=== PATIENT | female | born 1955 | race Caucasian/White ===

== ENCOUNTER 2020-06-15 17:00 | Outpatient (CLI) | payer MEDICAID | END 2020-06-15 17:01 | disposition critical access hospital (66) | LOC: EMS 17:00 | PROVIDERS: ATTEND Surgery | DX: R41.82 Altered mental status, unspecified (principal); R53.1 Weakness | CPT/HCPCS: A0425; A0429; A0999 ==

== ENCOUNTER 2020-06-15 17:34 | Emergency (ER) | payer MEDICAID ==
[2020-06-15 18:08] LABS: BASOPHILS % (AUTO) 0.2 %; EOSINOPHILS % (AUTO) 0.5 %; HGB - HEMOGLOBIN 13.5 g/dL (12.0-16.0); LYMPHOCYTES # (AUTO) 2.2 10^3/uL (1.5-3.5); LYMPHOCYTES % (AUTO) 25.6 %; MEAN CORPUSCULAR HEMOGLOBIN 29.4 pg (27.0-31.0); MEAN CORPUSCULAR HGB CONC 34.8 g/dL (32.0-36.0); MEAN CORPUSCULAR VOLUME 84.5 fL (81.0-99.0); MEAN PLATELET VOLUME 8.6 fL (7.9-10.8); MONOCYTES # (AUTO) 0.8 10^3/uL (0.0-1.0); NEUTROPHILS # (AUTO) 5.5 10^3/uL (1.5-6.6); NEUTROPHILS % (AUTO) 64.5 %; PLT - PLATELET COUNT 240 10^3/uL (130-450); RED BLOOD COUNT 4.59 10^6/uL (4.20-5.40); RED CELL DISTRIBUTION WIDTH 14.3 % (12.0-15.0); WHITE BLOOD COUNT 8.5 x10^3/uL (4.8-10.8)
--- NOTE | 2020-06-15 18:22 | ED Physician Documentation ---
History of Present Illness - Stated complaint Stated Complaint: MHE - Chief complaint Chief Complaint: Neuro - Additonal information Additional information: 65-year-old female was brought into the emergency department because she was noted by Sheriff sims to be wandering around at a gas station and was not making a lot of sense. She was brought here under the presumption of a mental health exam. At the time of presentation to the emergency department patient is aware of where she is at when I asked her why she is here she has a difficult time answering the question. Ultimately she is able to say that she has been having a hard time finding her words.She does seem to clutch her chest but is not clearly able to tell me if she has chest pain. Review of systems is exceedingly difficult to obtain. Patient is quite guarded. She limits our evaluation of her personal belongings or the medications she takes BROWN Report reveals that she has been seen within the last few months multiple times at as well as [facility]. We have limited history with Cecille here at [facility] on her person: asa, hctz Chart reviewed from [facility]. PMH: Hypothyroid, hypertension, COPD, depression meds: Levothyroxine, lisinopril, fluticasoneAlbuterol Review of Systems Unable to obtain: Other (difficult to obtain;) Constitutional: denies: Fever, Chills Cardiac: denies: Chest pain / pressure Respiratory: denies: Dyspnea GI: reports: Abdominal Pain. denies: Abdominal Swelling, Nausea : denies: Dysuria, Frequency Neurologic: reports: Confused, Headache, Other (difficulty with word finding) PD PAST MEDICAL HISTORY - Past Medical History Cardiovascular: Hypertension Psych: Depression - Past Surgical History Past Surgical History: Yes /[employer]: Hysterectomy - Present Medications Home Medications: Ambulatory Orders Medication Instructions Recorded Confirmed Levothyroxine [Synthroid] 03/27/16 Venlafaxine [Effexor] 03/27/16 buPROPion [Wellbutrin Sr] 150 mg PO BID 03/27/16 03/27/16 lisinopriL [Lisinopril] 03/27/16 Phenazopyridine [Pyridium] 200 mg PO TID 5 Days tablet 03/28/16 Sulfamethoxazole/Trimethoprim 1 each PO BID #14 tablet 03/28/16 [Bactrim Ds Tablet] Levothyroxine [Synthroid] 75 mcg PO QDAC #30 tablet 06/15/20 - Allergies Allergies/Adverse Reactions: Allergies Allergy/AdvReac Type Severity Reaction Status Date / Time No Known Drug Allergies Allergy Verified 03/27/16 23:29 - Social History Does the pt smoke?: No Smoking Status: Never smoker Does the pt drink ETOH?: No PD ED PE EXPANDED - General General: Alert, No acute distress, Disheveled, poorly kept - HEENT HEENT: PERRL, EOMI, Moist mucous membranes, Other (poor dentition) - Eyes Eyes: PERRL, Normal accommodation - Neck Neck: Supple w/out meningeal sx, No tenderness, Other (full ROM in all planes) - Cardiac Cardiac: Regular Rate, Normal pulses, Radial strong equal, Femoral strong equal, Pedal strong equal, Cap refill < 2 sec. No: Murmur Present - Respiratory Respiratory: Clear to ausultation amada. No: Distress, Labored - Abdomen Abdomen: Normal Bowel sounds, RLQ (non focal RLQ pain; no guarding or rebound) - Back Back: Normal exam. No: Vertebral tenderness, Soft tissue tenderness - Derm Derm: Normal color (bultiple bruises on arms, abdomen and extremities; large 4X4 cm hematoma left thigh) - Neuro Neuro: Confused, Normal motor, CNII-XII intact. No: Normal Speech (problem with word finding), Weakness, Abnormal sensation - GCS Eye Opening: Spontaneous Motor: Obeys Commands Verbal: Oriented Total: 15 Results - Vitals Vitals: Vital Signs - 24 hr 06/15/20 06/15/20 06/15/20 17:44 18:53 19:35 Temperature 98.2 C H Heart Rate 89 84 96 Respiratory 18 21 16 Rate Blood Pressure 172/91 H 185/96 H 182/127 H O2 Saturation 99 100 100 Oxygen O2 Source Room air - EKG (time done) 1749 Rate: Rate (enter#) (92) Rhythm: NSR [place]: Normal Intervals: Normal [place] QRS: Normal Ischemia: Normal ST segments, Q waves (inferior leads) Compare to prior EKG: Old EKG unavailable Computer interpretation: Agree with computer - Labs Labs: Laboratory Tests 06/15/20 06/15/20 06/15/20 18:00 18:00 18:00 WBC 8.5 RBC 4.59 Hgb 13.5 Hct 38.8 MCV 84.5 MCH 29.4 MCHC 34.8 RDW 14.3 Plt Count 240 MPV 8.6 Neut # (Auto) 5.5 Lymph # (Auto) 2.2 [place] # (Auto) 0.8 Eos # (Auto) 0.0 Baso # (Auto) 0.0 Absolute Nucleated RBC 0.00 Nucleated RBC % 0.0 Sodium 140 Potassium 2.8 L Chloride 103 Carbon Dioxide 29 Anion Gap 8.0 BUN 5 L Creatinine 0.8 Estimated GFR (MDRD) 72 L Glucose 99 Calcium 8.9 Total Bilirubin 1.2 H AST 19 ALT 12 Alkaline Phosphatase 65 Troponin I High Sens Total Protein 6.6 L Albumin 4.5 Globulin 2.1 Albumin/Globulin Ratio 2.1 Lipase 23 TSH < 0.08 L Thyroxine (T4) Urine Color Urine Clarity Urine pH Ur Specific [place] Urine Protein Urine Glucose (UA) Urine Ketones Urine Occult Blood Urine Nitrite Urine Bilirubin Urine Urobilinogen Ur Leukocyte Esterase Ur Microscopic Review Urine Culture Comments Salicylates < 6.0 Urine Opiates Screen Ur Oxycodone Screen Urine Methadone Screen Ur Propoxyphene Screen Acetaminophen < 10 L Ur Barbiturates Screen Ur Tricyclics Screen Ur Phencyclidine Scrn Ur Amphetamine Screen U Methamphetamines Scrn U Benzodiazepines Scrn Urine Cocaine Screen U Cannabinoids Screen Ethyl Alcohol < 5.0 06/15/20 06/15/20 06/15/20 18:00 18:00 18:25 WBC RBC Hgb Hct MCV MCH MCHC RDW Plt Count MPV Neut # (Auto) Lymph # (Auto) [place] # (Auto) Eos # (Auto) Baso # (Auto) Absolute Nucleated RBC Nucleated RBC % Sodium Potassium Chloride Carbon Dioxide Anion Gap BUN Creatinine Estimated GFR (MDRD) Glucose Calcium Total Bilirubin AST ALT Alkaline Phosphatase Troponin I High Sens 4.2 Total Protein Albumin Globulin Albumin/Globulin Ratio Lipase TSH Thyroxine (T4) 12.97 H Urine Color YELLOW Urine Clarity CLEAR Urine pH 5.0 Ur Specific [place] <=1.005 Urine Protein NEGATIVE Urine Glucose (UA) NEGATIVE Urine Ketones NEGATIVE Urine Occult Blood NEGATIVE Urine Nitrite NEGATIVE Urine Bilirubin NEGATIVE Urine Urobilinogen 0.2 (NORMAL) Ur Leukocyte Esterase NEGATIVE Ur Microscopic Review NOT INDICATED Urine Culture Comments NOT INDICATED Salicylates Urine Opiates Screen NEGATIVE Ur Oxycodone Screen NEGATIVE Urine Methadone Screen NEGATIVE Ur Propoxyphene Screen NEGATIVE Acetaminophen Ur Barbiturates Screen NEGATIVE Ur Tricyclics Screen NEGATIVE Ur Phencyclidine Scrn NEGATIVE Ur Amphetamine Screen NEGATIVE U Methamphetamines Scrn NEGATIVE U Benzodiazepines Scrn NEGATIVE Urine Cocaine Screen NEGATIVE U Cannabinoids Screen NEGATIVE Ethyl Alcohol - Rads (name of study) CT head Radiology: Final report received (No acute intracranial process) PD MEDICAL DECISION MAKING - ED course Complexity details: reviewed results, re-evaluated patient, d/w patient, d/w family ED course: 65-year-old female was brought to the emergency department via EMS after deputies noted her wandering around a gas station. She reports that she has some trouble with word finding but she denies that she has any thoughts of self- harm. - During her time in the emergency department she has been quite compliant with our care. She did seem somewhat confused though was able to clearly answer that she Was in the emergency department at [facility] and [place] She has been insistent that she does not need medical care or interventions and has asked multiple times to leave the emergency department - In review of her labs it is noted that she is hypothyroid. I have reviewed some documentation from [facility] and [facility] that does indicate she has a history of hypothyroidism. - We did do a CT of her brain that showed no acute intracranial abnormality. Patient is alert oriented and has no focal cranial neuro deficits. She has been noted to walk in the emergency department with a very steady gait -She is noted to be hypokalemic and was repleted with potassium here in the emergency department - Her EKG is sinus and her high-sensitivity troponin is negative. She has not complained of chest pain or dyspnea. Her urine shows no signs of infection. - We have ultimately contacted the manager general's office who has been in contact with the patient's sister. She is coming to the emergency department 2049: Patient's Sister Sabrina has arrived to the emergency department. She reports to me that the [place] the [place] approximately 3 weeks. In conversation with the patient and her sister it appears that patient is currently at her baseline health and mentation. We discussed this ED visit. Patient is requesting a prescription for levothyroxine due to her history of hypothyroidism. I will write that prescription I have encouraged her to schedule a follow-up appointment with her primary doctor or a new primary doctor [place] in order to help establish care here. Does not appear that there is any emergent medical condition occurring with this patient and she desires to be discharged home. She is not a threat to herself or others Departure - Departure Disposition: 01 Home, Self Care Clinical Impression: Hypokalemia Hypothyroid Qualifiers: Hypothyroidism type: unspecified Qualified Code(s): E03.9 - Hypothyroidism, unspecified Depression Qualifiers: Depression Type: other depression Qualified Code(s): F32.89 - Other specified depressive episodes Condition: Stable Instructions: Hypokalemia Dc, ED Hypothyroidism, ED Depression Prescriptions: Levothyroxine [Synthroid] 75 mcg PO QDAC #30 tablet Comments: Cecille your labs today look generally okay. The CT scan did not show anything worrisome. I think it is important that you schedule an appointment with a primary doctor in the next few weeks to establish care [place]
[2020-06-15 18:25] LABS: ACETAMINOPHEN < 10 ug/mL (10-30); ALBUMIN 4.5 g/dL (3.2-5.5); ALBUMIN/GLOBULIN RATIO 2.1 (1.0-2.2); ALKALINE PHOSPHATASE 65 IU/L (42-121); ALT ALANINE AMINOTRANSFERASE 12 IU/L (10-60); AST ASPARTATE AMINOTRANSFERASE 19 IU/L (10-42); BILIRUBIN,TOTAL 1.2 mg/dL (0.2-1.0); BUN - BLOOD UREA NITROGEN 5 mg/dL (6-20); CALCIUM 8.9 mg/dL (8.5-10.3); CARBON DIOXIDE - CO2 29 mmol/L (21-32); CHLORIDE 103 mmol/L (101-111); CREATININE 0.8 mg/dL (0.4-1.0); GLUCOSE 99 mg/dL (70-100); LIPASE 23 U/L (22-51); SALICYLATE < 6.0 mg/dL; SODIUM 140 mmol/L (135-145); TOTAL PROTEIN 6.6 g/dL (6.7-8.2)
[2020-06-15 18:39] LABS: MUDS CUTOFF CONCENTRATIONS CUTOFF CONC BELOW:
[2020-06-15 18:50] LABS: BILIRUBIN,URINE NEGATIVE (NEGATIVE); GLUCOSE, URINE (UA) NEGATIVE (NEGATIVE); KETONES,URINE (UA) NEGATIVE (NEGATIVE); LEUKOCYTE ESTERASE, URINE NEGATIVE (NEGATIVE); NITRITE,URINE NEGATIVE (NEGATIVE); OCCULT BLOOD,URINE NEGATIVE (NEGATIVE); PROTEIN,URINE NEGATIVE (NEGATIVE); UROBILINOGEN,URINE 0.2 (NORMAL) E.U./dL (NORMAL)
[2020-06-15] MEDS ORDERED: POTASSIUM CHLOR 10 MEQ/100 ML 10 MEQ/100 ML BAG IV STA (18:57)
[2020-06-15] MEDS ORDERED: POTASSIUM CHLORIDE 20 MEQ TABLET PO STA (18:58)
[2020-06-15] MEDS ORDERED: POTASSIUM CHLOR 10 MEQ/100 ML 10 MEQ/100 ML BAG IV SCH (19:00)
--- NOTE | 2020-06-15 19:00 | CT Report ---
PROCEDURE: HEAD WO INDICATIONS: difficulty with word finding; ? confusion TECHNIQUE: Noncontrast 4.5 mm thick angled axial sections acquired from the foramen magnum to the vertex. For r adiation dose reduction, the following was used: automated exposure control, adjustment of mA and/or kV according to patient size. COMPARISON: None. FINDINGS: Image quality: Excellent. CSF spaces: Basal cisterns are patent. No extra-axial fluid collections. Ventricles are normal in size and shape. Brain: No midline shift. No intracranial masses or hemorrhage. Noel-white matter interface is norm al. Skull and face: Calvarium and visualized facial bones are intact, without suspicious lesions. Sinuses: Visualized sinuses and mastoids are clear. IMPRESSION: No acute intracranial process. Reviewed by: Nimesh Rincon MD on 06/15/2020 6:59 PM PDT Approved by: Nimesh Rincon MD on 06/15/2020 6:59 PM PDT Station ID: [id number]
[2020-06-15 19:12] LABS: CLARITY,URINE CLEAR (CLEAR)
[2020-06-15 19:17] LABS: AMPHETAMINE SCREEN,URINE NEGATIVE (NEGATIVE); BENZODIAZEPINES SCREEN, URINE NEGATIVE (NEGATIVE); COCAINE SCREEN URINE NEGATIVE (NEGATIVE); METHADONE SCREEN, URINE NEGATIVE (NEGATIVE); METHAMPHETAMINES SCREEN, URINE NEGATIVE (NEGATIVE); OPIATE SCREEN, URINE NEGATIVE (NEGATIVE); OXYCODONE SCREEN, URINE NEGATIVE (NEGATIVE); PROPOXYPHENE SCREEN, URINE NEGATIVE (NEGATIVE); TRICYCLIC ANTIDEPRESSANT,URINE NEGATIVE (NEGATIVE)
[2020-06-15 21:02] VITALS: BP 165/99
== END 2020-06-15 21:02 | disposition home or self-care (01) ==
LOC: EDUNIT# → ED 17:34
DX: E87.6 Hypokalemia (principal); E03.9 Hypothyroidism, unspecified; F32.89 Other specified depressive episodes
CPT/HCPCS: 36415; 51701; 70450; 80053; 80306; 80307; 80320; 80329; 81001; 81003; 83690; 84436; 84443; 84484; 85025; 87086; 93005; 99283; 99284

== ENCOUNTER 2020-07-25 11:50 | Outpatient (CLI) | payer MEDICAID | END 2020-07-25 11:51 | disposition critical access hospital (66) | LOC: EMS 11:50 | PROVIDERS: ATTEND Surgery | DX: R07.89 Other chest pain (principal); R06.02 Shortness of breath | CPT/HCPCS: A0425; A0427; A0999 ==

== ENCOUNTER 2020-07-25 12:20 | Emergency (ER) | payer MEDICAID ==
--- NOTE | 2020-07-25 12:51 | ED Physician Documentation ---
History of Present Illness - Stated complaint Stated Complaint: CP/SOA - Chief complaint Chief Complaint: Cardiac - History obtained from History obtained from: Patient - History of Present Illness Timing: Today Pain level max: 0 Pain level now: 0 - Additonal information Additional information: Patient states that she was walking down the road today when she tripped and fell. No injury but did feel slightly short of breath. Currently is asymptomatic. She states she has not been feeling well since stopping her Wellbutrin 3 weeks ago. She is not suicidal or homicidal. EMS states that she told them that she had chest pain yesterday. Patient denies this to me. No fevers. No cough. No chills. No vomiting. No abdominal, back, neck, head pain. Review of Systems Ten Systems: 10 systems reviewed and negative Constitutional: denies: Fever, Chills Throat: denies: Sore throat Cardiac: denies: Chest pain / pressure, Palpitations Respiratory: reports: Dyspnea (She felt slightly short of breath earlier). denies: Cough GI: denies: Nausea, Vomiting, Diarrhea : denies: Dysuria Skin: denies: Rash Musculoskeletal: denies: Neck pain, Back pain Neurologic: denies: Headache PD PAST MEDICAL HISTORY - Past Medical History Cardiovascular: Hypertension Psych: Depression - Past Surgical History Past Surgical History: Yes /[employer]: Hysterectomy - Present Medications Home Medications: Ambulatory Orders Medication Instructions Recorded Confirmed Levothyroxine [Synthroid] 03/27/16 Venlafaxine [Effexor] 03/27/16 buPROPion [Wellbutrin Sr] 150 mg PO BID 03/27/16 03/27/16 lisinopriL [Lisinopril] 03/27/16 Phenazopyridine [Pyridium] 200 mg PO TID 5 Days tablet 03/28/16 Sulfamethoxazole/Trimethoprim 1 each PO BID #14 tablet 03/28/16 [Bactrim Ds Tablet] Levothyroxine [Synthroid] 75 mcg PO QDAC #30 tablet 06/15/20 Cephalexin [Keflex] 500 mg PO QID #20 capsule 06/25/20 - Allergies Allergies/Adverse Reactions: Allergies Allergy/AdvReac Type Severity Reaction Status Date / Time No Known Drug Allergies Allergy Verified 07/25/20 12:32 - Social History Does the pt smoke?: No Smoking Status: Never smoker Does the pt drink ETOH?: No PD ED PE NORMAL - Vitals Vital signs reviewed: Yes - General General: Alert and oriented X 3 - HEENT HEENT: Atraumatic, PERRL, Ears normal, Moist mucous membranes - Neck Neck: Supple, no meningeal sign - Cardiac Cardiac: RRR, No murmur, Strong equal pulses - Respiratory Respiratory: No respiratory distress, Clear bilaterally - Abdomen Abdomen: Soft, Non tender, Non distended - Back Back: No spinal TTP - Derm Derm: Warm and dry - Extremities Extremities: No deformity, Normal ROM s pain, No edema, No calf tenderness / cord - Neuro Neuro: Alert and oriented X 3, pin puller 2-12 intact, No motor deficit, No sensory deficit, Normal speech - Psych Psych: Normal mood, Normal affect Results - Vitals Vitals: Vital Signs - 24 hr 07/25/20 07/25/20 07/25/20 12:25 12:51 13:00 Temperature 36.3 C L Heart Rate 86 82 81 Respiratory 16 14 16 Rate Blood Pressure 140/78 H 140/78 H 149/83 H O2 Saturation 99 100 98 07/25/20 14:00 Temperature Heart Rate 78 Respiratory 12 Rate Blood Pressure 148/83 H O2 Saturation 100 Oxygen O2 Source Room air - EKG (time done) 1228 Rate: Rate (enter#) (83) Rhythm: NSR [place]: Normal Intervals: Normal [place] QRS: Normal Ischemia: Normal ST segments, Q waves (II, III, aVF) - Labs Labs: Laboratory Tests 07/25/20 07/25/20 07/25/20 13:01 13:01 13:01 WBC 9.1 RBC 4.40 Hgb 13.5 Hct 37.7 MCV 85.7 MCH 30.7 MCHC 35.8 RDW 14.4 Plt Count 227 MPV 8.9 Neut # (Auto) 6.2 Lymph # (Auto) 2.1 [place] # (Auto) 0.8 Eos # (Auto) 0.0 Baso # (Auto) 0.0 Absolute Nucleated RBC 0.00 Nucleated RBC % 0.0 Sodium 140 Potassium 3.2 L Chloride 100 L Carbon Dioxide 30 Anion Gap 10.0 BUN 10 Creatinine 0.6 Estimated GFR (MDRD) 100 Glucose 93 Calcium 9.1 Total Bilirubin 1.6 H AST 22 ALT 14 Alkaline Phosphatase 62 Troponin I High Sens 6.6 Total Protein 6.2 L Albumin 4.1 Globulin 2.0 L Albumin/Globulin Ratio 2.0 Lipase 21 L Urine Color Urine Clarity Urine pH Ur Specific [place] Urine Protein Urine Glucose (UA) Urine Ketones Urine Occult Blood Urine Nitrite Urine Bilirubin Urine Urobilinogen Ur Leukocyte Esterase Urine RBC Urine WBC Ur Squamous Epith Cells Urine Bacteria Ur Microscopic Review Urine Culture Comments 07/25/20 13:29 WBC RBC Hgb Hct MCV MCH MCHC RDW Plt Count MPV Neut # (Auto) Lymph # (Auto) [place] # (Auto) Eos # (Auto) Baso # (Auto) Absolute Nucleated RBC Nucleated RBC % Sodium Potassium Chloride Carbon Dioxide Anion Gap BUN Creatinine Estimated GFR (MDRD) Glucose Calcium Total Bilirubin AST ALT Alkaline Phosphatase Troponin I High Sens Total Protein Albumin Globulin Albumin/Globulin Ratio Lipase Urine Color YELLOW Urine Clarity CLEAR Urine pH 6.5 Ur Specific [place] <=1.005 Urine Protein NEGATIVE Urine Glucose (UA) NEGATIVE Urine Ketones NEGATIVE Urine Occult Blood NEGATIVE Urine Nitrite NEGATIVE Urine Bilirubin NEGATIVE Urine Urobilinogen 0.2 (NORMAL) Ur Leukocyte Esterase TRACE H Urine RBC None Seen Urine WBC 0-3 Ur Squamous Epith Cells NONE SEEN Urine Bacteria None Seen Ur Microscopic Review INDICATED Urine Culture Comments INDICATED - Rads (name of study) cxr Radiology: Prelim report reviewed, EMP read contemporaneously, See rad report (NAD) PD MEDICAL DECISION MAKING - ED course Complexity details: reviewed results, re-evaluated patient, considered differential, d/w patient, d/w family ED course: Unclear etiology the patient symptoms. Does not appear to be related to acute coronary syndrome, pulmonary embolus, pneumothorax etc. Likely that she is experiencing symptoms related to the abrupt cessation of her Wellbutrin. She does not know her dose or the formulation which she used to take. Therefore will have her contact her doctor today to get a refill. Patient is otherwise well-appearing, nontoxic. No focal neurological deficits. NIH stroke scale of 0. No apparent traumatic injuries. Patient counseled regarding signs and symptoms for which I believe and urgent re-evaluation would be necessary. Patient with good understanding of and agreement to plan and is comfortable going home at this time This document was made in part using voice recognition software. While efforts are made to proofread this document, sound alike and grammatical errors may occur. Departure - Departure Disposition: 01 Home, Self Care Clinical Impression: Atypical chest pain Dyspnea Qualifiers: Dyspnea type: unspecified Qualified Code(s): R06.00 - Dyspnea, unspecified Condition: Good Instructions: ED Chest Pain Atypical Unkn Cause Follow-Up: Your,doctor in 1 week [Other] Comments: You will need to contact your doctor about restarting your medications. They may want to taper you back up to your appropriate dose. Return if you worsen. Discharge Date/Time: 07/25/20 14:31
[2020-07-25 13:22] LABS: ALBUMIN 4.1 g/dL (3.2-5.5); BILIRUBIN,TOTAL 1.6 mg/dL (0.2-1.0); CALCIUM 9.1 mg/dL (8.5-10.3); CREATININE 0.6 mg/dL (0.4-1.0); TOTAL PROTEIN 6.2 g/dL (6.7-8.2)
[2020-07-25 13:24] LABS: BASOPHILS % (AUTO) 0.3 %; EOSINOPHILS % (AUTO) 0.2 %; HGB - HEMOGLOBIN 13.5 g/dL (12.0-16.0); LYMPHOCYTES # (AUTO) 2.1 10^3/uL (1.5-3.5); LYMPHOCYTES % (AUTO) 22.8 %; MEAN CORPUSCULAR HEMOGLOBIN 30.7 pg (27.0-31.0); MEAN CORPUSCULAR HGB CONC 35.8 g/dL (32.0-36.0); MEAN CORPUSCULAR VOLUME 85.7 fL (81.0-99.0); MEAN PLATELET VOLUME 8.9 fL (7.9-10.8); MONOCYTES # (AUTO) 0.8 10^3/uL (0.0-1.0); MONOCYTES % (AUTO) 8.6 %; NEUTROPHILS # (AUTO) 6.2 10^3/uL (1.5-6.6); NEUTROPHILS % (AUTO) 67.7 %; PLT - PLATELET COUNT 227 10^3/uL (130-450); RED CELL DISTRIBUTION WIDTH 14.4 % (12.0-15.0); WHITE BLOOD COUNT 9.1 x10^3/uL (4.8-10.8)
--- NOTE | 2020-07-25 13:35 | XRAY Report ---
PROCEDURE: Chest 1 View X-Ray INDICATIONS: Chest Pain TECHNIQUE: One view of the chest was acquired. COMPARISON: 06/24/2020 FINDINGS: Surgical changes and devices: None. Lungs and pleura: No pleural effusions or pneumothorax. Lungs are clear. Mediastinum: Mediastinal contours appear normal. Heart size is normal. Bones and chest wall: No suspicious bony lesions. Overlying soft tissues appear unremarkable. IMPRESSION: Stable examination of the chest without acute cardiopulmonary abnormalities. No findings identified t o explain patient's chest pain. Reviewed by: Paddy Patiño MD on 07/25/2020 1:34 PM PDT Approved by: Paddy Patiño MD on 07/25/2020 1:34 PM PDT Station ID: [id number]
[2020-07-25 13:57] LABS: BILIRUBIN,URINE NEGATIVE (NEGATIVE); GLUCOSE, URINE (UA) NEGATIVE (NEGATIVE); KETONES,URINE (UA) NEGATIVE (NEGATIVE); LEUKOCYTE ESTERASE, URINE TRACE (NEGATIVE); NITRITE,URINE NEGATIVE (NEGATIVE); OCCULT BLOOD,URINE NEGATIVE (NEGATIVE); PH,URINE 6.5 PH (5.0-7.5); PROTEIN,URINE NEGATIVE (NEGATIVE); UROBILINOGEN,URINE 0.2 (NORMAL) E.U./dL (NORMAL)
[2020-07-25 14:00] LABS: CLARITY,URINE CLEAR (CLEAR)
[2020-07-25 14:01] LABS: BACTERIA,URINE None Seen /HPF (None Seen); RBC,URINE None Seen /HPF (0-5); SQUAMOUS EPITHELIAL CELL,UR NONE SEEN (<= Few)
[2020-07-25 14:25] VITALS: BP 148/83
== END 2020-07-25 14:31 | disposition home or self-care (01) ==
LOC: EDUNIT# → ED 12:20
DX: R06.02 Shortness of breath (principal); R07.89 Other chest pain; I10 Essential (primary) hypertension
CPT/HCPCS: 36415; 71045; 80053; 81001; 81003; 83690; 84484; 85025; 87086; 93005; 99284

== ENCOUNTER 2020-08-01 06:36 | Outpatient (CLI) | payer MEDICAID | END 2020-08-01 06:37 | disposition critical access hospital (66) | LOC: EMS 06:36 | PROVIDERS: ATTEND Surgery | DX: R10.11 Right upper quadrant pain (principal); R41.0 Disorientation, unspecified; R30.0 Dysuria | CPT/HCPCS: A0425; A0427; A0999 ==

== ENCOUNTER 2020-08-01 06:58 | Emergency (ER) | payer MEDICAID ==
--- NOTE | 2020-08-01 07:06 | ED Physician Documentation ---
PD HPI ALTERED MENTAL STATUS - Stated complaint Stated Complaint: CONFUSION - History obtained from History obtained from: Patient - History of Present Illness Timing - onset: Today Timing - duration: Hours (patient says she felt weak and confused and called EMS. They report that she was agitated and anxious on their arrival. They calmed her by talking and brought her here for eval. She says she had some chest pain and dyspnea enroute.) Timing - details: Gradual onset, Waxing and waning Quality / character: Confused (she was not sure what she was doing and got c onfused of which day it was.), Agitated, Other Associated symptoms: No: Fever, Headache, NVD, Focal weakness Contributing factors: No: Diabetic, Recent med change, Recent illness, Intoxicated, Substance abuse Basline status: Ambulatory, Confused (reportedly patient has had some confusion and poor memory. Her sister checks on her often/daily, and there is APS worker on the case (patient still has her own decision capacity; does not have POA). Sister is concerned about patient ability to care for herself.), Home Treatment TEACHING MANAGER: Accucheck Similar symptoms before: No diagnosis (nonspecific chest pain episodes. Episodes of confusion and anxiety.) Recently seen: Emergency Dept Review of Systems Constitutional: denies: Fever, Myalgias Nose: denies: Rhinorrhea / runny nose, Congestion Throat: denies: Sore throat Cardiac: reports: Chest pain / pressure. denies: Palpitations Respiratory: reports: Dyspnea. 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 - Present Medications Home Medications: Ambulatory Orders Medication Instructions Recorded Confirmed Levothyroxine [Synthroid] 03/27/16 Venlafaxine [Effexor] 03/27/16 buPROPion [Wellbutrin Sr] 150 mg PO BID 03/27/16 03/27/16 lisinopriL [Lisinopril] 03/27/16 Phenazopyridine [Pyridium] 200 mg PO TID 5 Days tablet 03/28/16 Sulfamethoxazole/Trimethoprim 1 each PO BID #14 tablet 03/28/16 [Bactrim Ds Tablet] Levothyroxine [Synthroid] 75 mcg PO QDAC #30 tablet 06/15/20 Cephalexin [Keflex] 500 mg PO QID #20 capsule 06/25/20 Venlafaxine [Effexor] 75 mg PO BID #40 tablet 08/01/20 buPROPion [Wellbutrin Sr] 150 mg PO BID #40 tablet 08/01/20 lisinopriL [Lisinopril] 10 mg PO DAILY #20 tablet 08/01/20 - Allergies Allergies/Adverse Reactions: Allergies Allergy/AdvReac Type Severity Reaction Status Date / Time No Known Drug Allergies Allergy Verified 07/25/20 12:32 - Social History Does the pt smoke?: No Smoking Status: Never smoker Does the pt drink ETOH?: No PD ED PE NORMAL - Vitals Vital signs reviewed: Yes - General General: Alert and oriented X 3, Well developed/nourished - HEENT HEENT: Atraumatic, Moist mucous membranes, Pharynx benign - Neck Neck: Supple, no meningeal sign, No adenopathy - Cardiac Cardiac: RRR, No murmur - Respiratory Respiratory: Clear bilaterally - Abdomen Abdomen: Soft, Non tender - Back Back: No CVA TTP - Derm Derm: Normal color, Warm and dry - Neuro Neuro: Alert and oriented X 3, No motor deficit, Normal speech Eye Opening: Spontaneous Motor: Obeys Commands Verbal: Oriented GCS Score: 15 - Psych Psych: No: Normal affect (somewhat anxious) Results - Vitals Vitals: Vital Signs - 24 hr 08/01/20 08/01/20 08/01/20 07:09 07:10 08:00 Temperature 36.8 C 36.8 C Heart Rate 77 77 78 Respiratory 18 18 18 Rate Blood Pressure 146/77 H 146/77 H 145/76 H O2 Saturation 100 100 100 08/01/20 08/01/20 08/01/20 10:00 12:58 13:59 Temperature 36.5 C 36.5 C 37 C Heart Rate 82 74 76 Respiratory 18 20 16 Rate Blood Pressure 147/68 H 144/90 H 137/71 H O2 Saturation 100 100 100 Oxygen O2 Source Room air - EKG (time done) 07:38 Rate: Rate (enter#) (72) Rhythm: NSR [place]: Normal Intervals: Normal [place] QRS: Normal Ischemia: Normal ST segments. No: ST elevation c/w ischemia, ST depression Compare to prior EKG: Unchanged from prior EKG - Labs Labs: Laboratory Tests 08/01/20 08/01/20 08/01/20 07:46 07:46 07:46 WBC 8.4 RBC 4.30 Hgb 13.3 Hct 37.5 MCV 87.2 MCH 30.9 MCHC 35.5 RDW 14.4 Plt Count 248 MPV 9.2 Neut # (Auto) 5.6 Lymph # (Auto) 1.9 [place] # (Auto) 0.7 Eos # (Auto) 0.1 Baso # (Auto) 0.0 Absolute Nucleated RBC 0.00 Nucleated RBC % 0.0 Sodium 142 Potassium 3.4 L Chloride 102 Carbon Dioxide 28 Anion Gap 12.0 BUN 12 Creatinine 0.6 Estimated GFR (MDRD) 100 Glucose 112 H Calcium 9.3 Magnesium 2.2 Total Bilirubin 0.9 AST 22 ALT 14 Alkaline Phosphatase 72 Troponin I High Sens 5.9 B-Natriuretic Peptide Total Protein 6.1 L Albumin 4.0 Globulin 2.1 Albumin/Globulin Ratio 1.9 Lipase 21 L Vitamin B12 TSH Free T4 Free T3 pg/mL Urine Color Urine Clarity Urine pH Ur Specific [place] Urine Protein Urine Glucose (UA) Urine Ketones Urine Occult Blood Urine Nitrite Urine Bilirubin Urine Urobilinogen Ur Leukocyte Esterase Urine RBC Urine WBC Ur Squamous Epith Cells Urine Bacteria Ur Microscopic Review Urine Culture Comments 08/01/20 08/01/20 08/01/20 07:46 07:46 11:20 WBC RBC Hgb Hct MCV MCH MCHC RDW Plt Count MPV Neut # (Auto) Lymph # (Auto) [place] # (Auto) Eos # (Auto) Baso # (Auto) Absolute Nucleated RBC Nucleated RBC % Sodium Potassium Chloride Carbon Dioxide Anion Gap BUN Creatinine Estimated GFR (MDRD) Glucose Calcium Magnesium Total Bilirubin AST ALT Alkaline Phosphatase Troponin I High Sens B-Natriuretic Peptide 15 Total Protein Albumin Globulin Albumin/Globulin Ratio Lipase Vitamin B12 282 TSH < 0.08 L Free T4 1.12 Free T3 pg/mL 3.65 Urine Color YELLOW Urine Clarity CLEAR Urine pH 7.0 Ur Specific [place] 1.015 Urine Protein NEGATIVE Urine Glucose (UA) NEGATIVE Urine Ketones NEGATIVE Urine Occult Blood NEGATIVE Urine Nitrite NEGATIVE Urine Bilirubin NEGATIVE Urine Urobilinogen 0.2 (NORMAL) Ur Leukocyte Esterase MODERATE H Urine RBC None Seen Urine WBC 4-5 Ur Squamous Epith Cells NONE SEEN Urine Bacteria None Seen Ur Microscopic Review INDICATED Urine Culture Comments INDICATED - Rads (name of study) chest xray Radiology: Prelim report reviewed (no acute process), See rad report PD MEDICAL DECISION MAKING - ED course Complexity details: reviewed results, considered differential (ECG, CXR, labs are normal. No signs of cardiac chest pain. Also with some anxiety. Several ER visits for similar. Can have SW talk with her and see if needs home support. ), d/w patient Departure - Departure Disposition: Home, Self Care Clinical Impression: Has run out of medications Altered mental state Qualifiers: Altered mental status type: disorientation Qualified Code(s): R41.0 - Disorientation, unspecified Clinical Impression: (Ruled Out): Cystitis Condition: Stable Record reviewed to determine appropriate education?: Yes Follow-Up: [facility] [Provider Group] [facility] [Provider Group] Prescriptions: Venlafaxine [Effexor] 75 mg PO BID #40 tablet lisinopriL [Lisinopril] 10 mg PO DAILY #20 tablet buPROPion [Wellbutrin Sr] 150 mg PO BID #40 tablet Comments: Resume your prior usual medicines. I wrote prescriptions for 3 weeks worth to try to get into a new primary care. I gave a couple of clinic numbers for you to follow-up with. Social work helped you with your insurance ID number so hopefully you can make appointments now. She also provided some resources for counseling and other in- house assistance. Please follow-up with those. Stay well-hydrated. Discharge Date/Time: 08/01/20 14:15
[2020-08-01] MEDS ORDERED: SODIUM CHLORIDE 0.9% 1,000 ML IV STA (07:30)
[2020-08-01] MEDS ORDERED: ONDANSETRON 4 MG/2 ML VIAL IVP STA (07:30)
[2020-08-01 07:54] LABS: BASOPHILS % (AUTO) 0.4 %; EOSINOPHILS # (AUTO) 0.1 10^3/uL (0.0-0.7); EOSINOPHILS % (AUTO) 0.7 %; HGB - HEMOGLOBIN 13.3 g/dL (12.0-16.0); LYMPHOCYTES # (AUTO) 1.9 10^3/uL (1.5-3.5); LYMPHOCYTES % (AUTO) 22.4 %; MEAN CORPUSCULAR HEMOGLOBIN 30.9 pg (27.0-31.0); MEAN CORPUSCULAR HGB CONC 35.5 g/dL (32.0-36.0); MEAN CORPUSCULAR VOLUME 87.2 fL (81.0-99.0); MEAN PLATELET VOLUME 9.2 fL (7.9-10.8); MONOCYTES # (AUTO) 0.7 10^3/uL (0.0-1.0); MONOCYTES % (AUTO) 8.7 %; NEUTROPHILS # (AUTO) 5.6 10^3/uL (1.5-6.6); NEUTROPHILS % (AUTO) 67.3 %; PLT - PLATELET COUNT 248 10^3/uL (130-450); RED CELL DISTRIBUTION WIDTH 14.4 % (12.0-15.0); WHITE BLOOD COUNT 8.4 x10^3/uL (4.8-10.8)
[2020-08-01 08:09] LABS: ALBUMIN/GLOBULIN RATIO 1.9 (1.0-2.2); BILIRUBIN,TOTAL 0.9 mg/dL (0.2-1.0); CALCIUM 9.3 mg/dL (8.5-10.3); CREATININE 0.6 mg/dL (0.4-1.0); MAGNESIUM 2.2 mg/dL (1.7-2.8); TOTAL PROTEIN 6.1 g/dL (6.7-8.2)
--- NOTE | 2020-08-01 08:12 | XRAY Report ---
PROCEDURE: Chest 1 View X-Ray INDICATIONS: chest pain TECHNIQUE: One view of the chest was acquired. COMPARISON: 07/25/2020 FINDINGS: Surgical changes and devices: None. Lungs and pleura: No pleural effusions or pneumothorax. Lungs are clear. Mediastinum: Mediastinal contours appear normal. Heart size is normal. Bones and chest wall: No suspicious bony lesions. Overlying soft tissues appear unremarkable. IMPRESSION: No acute cardiopulmonary pathology. Reviewed by: James Orozco MD on 08/01/2020 8:10 AM PDT Approved by: James Orozco MD on 08/01/2020 8:10 AM PDT Station ID: [id number]
[2020-08-01 08:37] LABS: THYROID STIMULATING HORMONE < 0.08 uIU/mL (0.34-5.60)
[2020-08-01 08:39] LABS: FREE T3 3.65 pg/mL (2.5-3.9); FREE T4 (FREE THYROXINE) 1.12 ng/dL (0.58-1.64)
[2020-08-01] MEDS ORDERED: buPROPion SR 150 MG TABLET PO STA (09:11)
[2020-08-01 11:33] LABS: BILIRUBIN,URINE NEGATIVE (NEGATIVE); GLUCOSE, URINE (UA) NEGATIVE (NEGATIVE); KETONES,URINE (UA) NEGATIVE (NEGATIVE); LEUKOCYTE ESTERASE, URINE MODERATE (NEGATIVE); NITRITE,URINE NEGATIVE (NEGATIVE); OCCULT BLOOD,URINE NEGATIVE (NEGATIVE); PROTEIN,URINE NEGATIVE (NEGATIVE); UROBILINOGEN,URINE 0.2 (NORMAL) E.U./dL (NORMAL)
[2020-08-01 11:37] LABS: CLARITY,URINE CLEAR (CLEAR)
[2020-08-01 12:02] LABS: BACTERIA,URINE None Seen /HPF (None Seen); RBC,URINE None Seen /HPF (0-5); SQUAMOUS EPITHELIAL CELL,UR NONE SEEN (<= Few)
[2020-08-01 13:59] VITALS: BP 137/71
== END 2020-08-01 14:15 | disposition home or self-care (01) ==
LOC: EDUNIT# → ED 06:58
DX: R41.0 Disorientation, unspecified (principal); T50.996A Underdosing of other drugs, medicaments and biological substances, initial encounter; Z91.138 Patient's unintentional underdosing of medication regimen for other reason; I10 Essential (primary) hypertension; F03.90 Unspecified dementia, unspecified severity, without behavioral disturbance, psychotic disturbance, mood disturbance, and anxiety
CPT/HCPCS: 36415; 71045; 80053; 81001; 82607; 82652; 83690; 83735; 83880; 84439; 84443; 84481; 84484; 85025; 87086; 93005; 96361; 96374; 99284; A9270; 81003

== ENCOUNTER 2020-08-02 17:19 | Outpatient (CLI) | payer MEDICAID | END 2020-08-02 17:20 | disposition critical access hospital (66) | LOC: EMS 17:19 | PROVIDERS: ATTEND Surgery | DX: R46.89 Other symptoms and signs involving appearance and behavior (principal); R41.82 Altered mental status, unspecified | CPT/HCPCS: A0425; A0429; A0999 ==

== ENCOUNTER 2020-08-02 17:44 | Emergency (ER) | payer MEDICAID ==
--- NOTE | 2020-08-02 17:57 | ED Physician Documentation ---
History of Present Illness - Stated complaint Stated Complaint: MHE - Additonal information Additional information: Cecille is a 65-year-old female that returns to the emergency department because her sister called EMS as the patient reported she was having a difficult time breathing. The patient for both EMS and us, is mostly grunting when asked questions but at other times is able to speak in fluid sentences. Pt states that she is short of air. She is able to clearly state that she has been having a hard time in her mind today. Cecille has been seen multiple times in the last month for mental health concerns. She is relatively new to [facility] but she does have an APS worker (Dory Serra) [phone]. she is scheduled with [facility] scheduled an intake appointment on August 23. Efforts have also been made recently to get her connect with primary care which has not yet occurred. EMS reports that the trailer she lives in is grossly disorganized. pt also has very poor hygiene and multiple old ECG stickers in-place from previous ED visits. Review of Systems Unable to obtain: Other (difficult to obtain. pt grunts when asked question, but is at other times able to speak fluidly) Cardiac: reports: Chest pain / pressure Respiratory: reports: Dyspnea (Maybe) Skin: reports: Lesions Psychiatric: reports: Anxiety PD PAST MEDICAL HISTORY - Past Medical History Cardiovascular: Hypertension Respiratory: None Neuro: Dementia Endocrine/Autoimmune: None Psych: Depression - Past Surgical History Past Surgical History: Yes /FOREIGN DIPLOMAT: Hysterectomy - Present Medications Home Medications: Ambulatory Orders Medication Instructions Recorded Confirmed Levothyroxine [Synthroid] 03/27/16 Venlafaxine [Effexor] 03/27/16 buPROPion [Wellbutrin Sr] 150 mg PO BID 03/27/16 03/27/16 lisinopriL [Lisinopril] 03/27/16 Phenazopyridine [Pyridium] 200 mg PO TID 5 Days tablet 03/28/16 Sulfamethoxazole/Trimethoprim 1 each PO BID #14 tablet 03/28/16 [Bactrim Ds Tablet] Levothyroxine [Synthroid] 75 mcg PO QDAC #30 tablet 06/15/20 Cephalexin [Keflex] 500 mg PO QID #20 capsule 06/25/20 Venlafaxine [Effexor] 75 mg PO BID #40 tablet 08/01/20 buPROPion [Wellbutrin Sr] 150 mg PO BID #40 tablet 08/01/20 lisinopriL [Lisinopril] 10 mg PO DAILY #20 tablet 08/01/20 - Allergies Allergies/Adverse Reactions: Allergies Allergy/AdvReac Type Severity Reaction Status Date / Time No Known Drug Allergies Allergy Verified 08/02/20 18:01 - Social History Does the pt smoke?: No Smoking Status: Never smoker Does the pt drink ETOH?: No PD ED PE EXPANDED - General General: Alert, No acute distress, Disheveled, poorly kept (poor hygeine), Anxious - HEENT HEENT: Atraumatic, PERRL - Neck Neck: Supple w/out meningeal sx, No tenderness. No: Limited ROM - Cardiac Cardiac: Regular Rate, Regular Rhythm, Femoral strong equal, Pedal strong equal, Cap refill < 2 sec - Respiratory Respiratory: Clear to ausultation amada. No: Distress, Labored - Abdomen Abdomen: Normal Bowel sounds. No: Tender to palpation - Derm Derm: Normal color, Warm and dry, Abrasion (s) (multiple abrasion in various stages of healed on arms, legs). No: Purpura - Extremities Extremities: Normal - Neuro Neuro: CNII-XII intact - GCS Eye Opening: Spontaneous Motor: Obeys Commands Verbal: Oriented Total: 15 Results - Vitals Vitals: Vital Signs - 24 hr 08/02/20 08/02/20 17:52 18:19 Temperature 36.7 C Heart Rate 85 86 Respiratory 18 18 Rate Blood Pressure 145/86 H 153/74 H O2 Saturation 100 99 Oxygen O2 Source Room air - EKG (time done) 1804 Rate: Rate (enter#) (84) Rhythm: NSR [place]: Normal Intervals: Normal [place] QRS: Normal Ischemia: Q waves (inferior) Compare to prior EKG: Unchanged from prior EKG Computer interpretation: Agree with computer (NSR, old inferior infarct) - Labs Labs: Laboratory Tests 08/02/20 08/02/20 08/02/20 18:18 18:18 18:18 WBC 9.5 RBC 4.24 Hgb 13.1 Hct 37.0 MCV 87.3 MCH 30.9 MCHC 35.4 RDW 14.5 Plt Count 260 MPV 9.5 Neut # (Auto) 6.3 Lymph # (Auto) 2.3 [place] # (Auto) 0.8 Eos # (Auto) 0.0 Baso # (Auto) 0.0 Absolute Nucleated RBC 0.00 Nucleated RBC % 0.0 Sodium 142 Potassium 4.0 Chloride 108 Carbon Dioxide 31 Anion Gap 3.0 L BUN 12 Creatinine 0.6 Estimated GFR (MDRD) 100 Glucose 94 Calcium 9.3 Total Bilirubin 1.1 H AST 31 ALT 13 Alkaline Phosphatase 71 Troponin I High Sens 7.3 B-Natriuretic Peptide Total Protein 6.4 L Albumin 4.1 Globulin 2.3 Albumin/Globulin Ratio 1.8 Lipase 19 L Salicylates < 6.0 Urine Opiates Screen Ur Oxycodone Screen Urine Methadone Screen Ur Propoxyphene Screen Acetaminophen < 10 L Ur Barbiturates Screen Ur Tricyclics Screen Ur Phencyclidine Scrn Ur Amphetamine Screen U Methamphetamines Scrn U Benzodiazepines Scrn Urine Cocaine Screen U Cannabinoids Screen Ethyl Alcohol < 5.0 08/02/20 08/02/20 18:18 19:02 WBC RBC Hgb Hct MCV MCH MCHC RDW Plt Count MPV Neut # (Auto) Lymph # (Auto) [place] # (Auto) Eos # (Auto) Baso # (Auto) Absolute Nucleated RBC Nucleated RBC % Sodium Potassium Chloride Carbon Dioxide Anion Gap BUN Creatinine Estimated GFR (MDRD) Glucose Calcium Total Bilirubin AST ALT Alkaline Phosphatase Troponin I High Sens B-Natriuretic Peptide 34 Total Protein Albumin Globulin Albumin/Globulin Ratio Lipase Salicylates Urine Opiates Screen NEGATIVE Ur Oxycodone Screen NEGATIVE Urine Methadone Screen NEGATIVE Ur Propoxyphene Screen NEGATIVE Acetaminophen Ur Barbiturates Screen NEGATIVE Ur Tricyclics Screen NEGATIVE Ur Phencyclidine Scrn NEGATIVE Ur Amphetamine Screen NEGATIVE U Methamphetamines Scrn NEGATIVE U Benzodiazepines Scrn NEGATIVE Urine Cocaine Screen NEGATIVE U Cannabinoids Screen NEGATIVE Ethyl Alcohol - Rads (name of study) cxr Radiology: Final report received (No acute cardiopulmonary pathology) PD MEDICAL DECISION MAKING - ED course Complexity details: reviewed old records, reviewed results, re-evaluated patient, considered differential, d/w patient ED course: Karthik to the emergency department because her sister called EMS as she felt the patient could not breathe properly. When the patient presented here she was at times confluent in her speech but at other times would grunt. Patient states that she does not feel clear in her mind. However during the course of this ED stay she has been calm and cooperative and able to follow commands. Her EKG today is nonischemic. High-sensitivity troponin is negative. Chest x- ray negative as well as a BNP no signs at this time of acute ACS or heart failure. Cecille appears to be at her baseline mentation as I have seen her in the ER previously. Her urine tox is negative. It is unclear why her sister was concerned that she could not breathe but during the course of this ED stay she has appeared rather well without hypoxia. head CT was not repeated today. no focal neuro deficits and ct head recently negative. I suspect that the component driving her ED visitis is mental health. I have advised her that it is important her sister take the medications as prescribed and to continue to attempt to follow-up with the primary care doctor. She does have an APS worker that has arranged for outpatient mental health visit on August 23 which her sister is going to continue to help arrange care for. Departure - Departure Disposition: Home, Self Care Clinical Impression: Breathing difficulty Condition: Stable Record reviewed to determine appropriate education?: Yes Comments: I would recommend that you monitor and help Cecille take her medications as prescribed. Some anxiety or depression may be at the root of her visits. Her chest x-ray EKG and labs today are all essentially normal. Please continue to follow-up with the [facility] as arranged by her APS Worker. It is also very important that you continue to get Cecille into see a primary care provider. I do recommend that you make a list of all of the medications that she takes so that we can be fully aware of what is occurring with her and can help better manage her health If she develops chest pain, has difficulty breathing or you have further emergent concerns, please return to the ED
[2020-08-02] MEDS ORDERED: HALOPERIDOL 5 MG/ML VIAL IVP ONE (18:21)
[2020-08-02 18:33] LABS: BASOPHILS % (AUTO) 0.3 %; EOSINOPHILS % (AUTO) 0.3 %; HGB - HEMOGLOBIN 13.1 g/dL (12.0-16.0); LYMPHOCYTES # (AUTO) 2.3 10^3/uL (1.5-3.5); LYMPHOCYTES % (AUTO) 23.8 %; MEAN CORPUSCULAR HEMOGLOBIN 30.9 pg (27.0-31.0); MEAN CORPUSCULAR HGB CONC 35.4 g/dL (32.0-36.0); MEAN CORPUSCULAR VOLUME 87.3 fL (81.0-99.0); MEAN PLATELET VOLUME 9.5 fL (7.9-10.8); MONOCYTES # (AUTO) 0.8 10^3/uL (0.0-1.0); MONOCYTES % (AUTO) 8.4 %; NEUTROPHILS # (AUTO) 6.3 10^3/uL (1.5-6.6); NEUTROPHILS % (AUTO) 66.9 %; PLT - PLATELET COUNT 260 10^3/uL (130-450); RED BLOOD COUNT 4.24 10^6/uL (4.20-5.40); RED CELL DISTRIBUTION WIDTH 14.5 % (12.0-15.0); WHITE BLOOD COUNT 9.5 x10^3/uL (4.8-10.8)
--- NOTE | 2020-08-02 18:35 | XRAY Report ---
PROCEDURE: Chest 1 View X-Ray INDICATIONS: Chest Pain TECHNIQUE: One view of the chest was acquired. COMPARISON: 08/01/2020 FINDINGS: Surgical changes and devices: None. Lungs and pleura: No pleural effusions or pneumothorax. Lungs are clear. Mediastinum: Mediastinal contours appear normal. Heart size is normal. Bones and chest wall: No suspicious bony lesions. Overlying soft tissues appear unremarkable. IMPRESSION: Stable examination of the chest without acute cardiopulmonary abnormalities. Reviewed by: Paddy Patiño MD on 08/02/2020 6:34 PM PDT Approved by: Paddy Patiño MD on 08/02/2020 6:34 PM PDT Station ID: [id number]
[2020-08-02 18:42] LABS: ACETAMINOPHEN < 10 ug/mL (10-30); ALBUMIN 4.1 g/dL (3.2-5.5); ALBUMIN/GLOBULIN RATIO 1.8 (1.0-2.2); ALKALINE PHOSPHATASE 71 IU/L (42-121); ALT ALANINE AMINOTRANSFERASE 13 IU/L (10-60); AST ASPARTATE AMINOTRANSFERASE 31 IU/L (10-42); BILIRUBIN,TOTAL 1.1 mg/dL (0.2-1.0); BUN - BLOOD UREA NITROGEN 12 mg/dL (6-20); CALCIUM 9.3 mg/dL (8.5-10.3); CARBON DIOXIDE - CO2 31 mmol/L (21-32); CHLORIDE 108 mmol/L (101-111); CREATININE 0.6 mg/dL (0.4-1.0); GLUCOSE 94 mg/dL (70-100); LIPASE 19 U/L (22-51); SALICYLATE < 6.0 mg/dL; SODIUM 142 mmol/L (135-145); TOTAL PROTEIN 6.4 g/dL (6.7-8.2)
[2020-08-02 19:09] LABS: MUDS CUTOFF CONCENTRATIONS CUTOFF CONC BELOW:
[2020-08-02 19:25] LABS: AMPHETAMINE SCREEN,URINE NEGATIVE (NEGATIVE); BENZODIAZEPINES SCREEN, URINE NEGATIVE (NEGATIVE); COCAINE SCREEN URINE NEGATIVE (NEGATIVE); METHADONE SCREEN, URINE NEGATIVE (NEGATIVE); METHAMPHETAMINES SCREEN, URINE NEGATIVE (NEGATIVE); OPIATE SCREEN, URINE NEGATIVE (NEGATIVE); OXYCODONE SCREEN, URINE NEGATIVE (NEGATIVE); TRICYCLIC ANTIDEPRESSANT,URINE NEGATIVE (NEGATIVE)
[2020-08-02 19:26] LABS: PROPOXYPHENE SCREEN, URINE NEGATIVE (NEGATIVE)
[2020-08-02 20:21] VITALS: BP 166/94
== END 2020-08-02 20:21 | disposition home or self-care (01) ==
LOC: EDUNIT# → ED 17:44
DX: R06.02 Shortness of breath (principal); R07.9 Chest pain, unspecified; R41.82 Altered mental status, unspecified; R46.0 Very low level of personal hygiene; S40.812A Abrasion of left upper arm, initial encounter; S40.811A Abrasion of right upper arm, initial encounter; S80.812A Abrasion, left lower leg, initial encounter; S80.811A Abrasion, right lower leg, initial encounter; X58.XXXA Exposure to other specified factors, initial encounter; I25.2 Old myocardial infarction
CPT/HCPCS: 36415; 71045; 80053; 80306; 80307; 80320; 80329; 83690; 83880; 84484; 85025; 93005; 96374; 99283

== ENCOUNTER 2020-08-19 00:44 | Outpatient (CLI) | payer MEDICAID | END 2020-08-19 00:45 | disposition critical access hospital (66) | LOC: EMS 00:44 | PROVIDERS: ATTEND Surgery | DX: R25.1 Tremor, unspecified (principal); R23.1 Pallor; R46.4 Slowness and poor responsiveness | CPT/HCPCS: A0425; A0429; A0999 ==

== ENCOUNTER 2020-08-19 01:03 | Emergency (ER) | payer MEDICAID ==
--- NOTE | 2020-08-19 01:35 | ED Physician Documentation ---
History of Present Illness - Stated complaint Stated Complaint: AMS - Chief complaint Chief Complaint: Neuro - History obtained from History obtained from: Patient - Additonal information Additional information: Patient is a 65-year-old female brought in after she was found outside to be mildly disheveled and was sitting underneath a blackberry judd and was brought in for evaluation. Patient denies any complaints currently she has been seen here multiple times for previous similar presentation she denies any auditory or visual hallucinations denies any homicidal or suicidal thoughts.Apparently the patient has been seen here for previous similar episodes where she has had confusion she has been found wandering the streets. Apparently the patient was confused originally she had a blood checked by first responders that showed a blood sugar of 110. Review of Systems Ten Systems: 10 systems reviewed and negative Constitutional: reports: Reviewed and negative Eyes: reports: Reviewed and negative Ears: reports: Reviewed and negative Nose: reports: Reviewed and negative Throat: reports: Reviewed and negative Cardiac: reports: Reviewed and negative Respiratory: reports: Reviewed and negative GI: reports: Reviewed and negative : reports: Reviewed and negative Skin: reports: Reviewed and negative Musculoskeletal: reports: Reviewed and negative Neurologic: reports: Reviewed and negative Psychiatric: reports: Reviewed and negative Endocrine: reports: Reviewed and negative Immunocompromised: reports: Reviewed and negative PD PAST MEDICAL HISTORY - Past Medical History Cardiovascular: Hypertension Respiratory: None Neuro: Dementia Endocrine/Autoimmune: None Psych: Depression - Past Surgical History 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 - Present Medications Home Medications: Ambulatory Orders Medication Instructions Recorded Confirmed Levothyroxine [Synthroid] 03/27/16 Venlafaxine [Effexor] 03/27/16 buPROPion [Wellbutrin Sr] 150 mg PO BID 03/27/16 03/27/16 lisinopriL [Lisinopril] 03/27/16 Phenazopyridine [Pyridium] 200 mg PO TID 5 Days tablet 03/28/16 Sulfamethoxazole/Trimethoprim 1 each PO BID #14 tablet 03/28/16 [Bactrim Ds Tablet] Levothyroxine [Synthroid] 75 mcg PO QDAC #30 tablet 06/15/20 Cephalexin [Keflex] 500 mg PO QID #20 capsule 06/25/20 Venlafaxine [Effexor] 75 mg PO BID #40 tablet 08/01/20 buPROPion [Wellbutrin Sr] 150 mg PO BID #40 tablet 08/01/20 lisinopriL [Lisinopril] 10 mg PO DAILY #20 tablet 08/01/20 - Allergies Allergies/Adverse Reactions: Allergies Allergy/AdvReac Type Severity Reaction Status Date / Time No Known Drug Allergies Allergy Verified 08/02/20 18:01 - Social History Does the pt smoke?: No Smoking Status: Never smoker Does the pt drink ETOH?: No PD ED PE NORMAL - Vitals Vital signs reviewed: Yes - General General: Alert and oriented X 3, No acute distress - HEENT HEENT: PERRL - Neck Neck: Supple, no meningeal sign - Cardiac Cardiac: RRR, No murmur - Respiratory Respiratory: Clear bilaterally - Abdomen Abdomen: Normal bowel sounds, Soft, Non tender, Non distended - Derm Derm: Warm and dry - Extremities Extremities: No deformity - Neuro Neuro: Alert and oriented X 3 - Psych Psych: Normal mood, Normal affect Results - Vitals Vitals: Vital Signs - 24 hr 08/19/20 08/19/20 08/19/20 01:13 01:18 02:14 Temperature 36.8 C 36.8 C Heart Rate 103 H 103 H 92 Respiratory 10 L 10 L 15 Rate Blood Pressure 176/78 H 176/78 H 145/74 H O2 Saturation 100 100 100 08/19/20 08/19/20 08/19/20 02:36 03:16 04:27 Temperature Heart Rate 93 104 H 110 H Respiratory 13 14 15 Rate Blood Pressure 156/87 H 143/84 H 142/81 H O2 Saturation 100 100 100 Oxygen O2 Source Room air PD MEDICAL DECISION MAKING - ED course ED course: 65-year-old female brought in after she was found sitting underneath a blackberry judd. She is denied any homicidal or suicidal thoughts or hallucinations. She is asking for a turkey sandwich and Sprite. Patient was observed for 5 hours she is afebrile she is tolerated p.o. challenge and is requesting to be discharged from the emergency department. Departure - Departure Disposition: Home, Self Care Clinical Impression: Confusion Condition: Stable Instructions: ED Confusion Follow-Up: Vladimir Zaldivar MD [Provider Admit Priv/Credential] - Comments: Please follow-up with a primary care provider on Friday.
[2020-08-19 09:49] VITALS: BP 166/88
== END 2020-08-19 11:10 | disposition home or self-care (01) ==
LOC: EDUNIT# → ED 01:03
DX: R41.0 Disorientation, unspecified (principal); F03.90 Unspecified dementia, unspecified severity, without behavioral disturbance, psychotic disturbance, mood disturbance, and anxiety; I10 Essential (primary) hypertension
CPT/HCPCS: 99283; 99284

== ENCOUNTER 2020-08-19 11:55 | Outpatient (CLI) | payer MEDICAID | END 2020-08-19 11:56 | disposition critical access hospital (66) | LOC: EMS 11:55 | PROVIDERS: ATTEND Surgery | DX: M25.551 Pain in right hip (principal); M25.571 Pain in right ankle and joints of right foot | CPT/HCPCS: A0425; A0429; A0999 ==

== ENCOUNTER 2020-08-19 12:12 | Emergency (ER) | payer MEDICAID ==
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
--- NOTE | 2020-08-19 14:55 | XRAY Report ---
PROCEDURE: Foot 3 View LT INDICATIONS: fall, L foot/ankle pain TECHNIQUE: 3 views of the foot were acquired. COMPARISON: Correlation is made with the accompanying ankle plain films, 08/19/2020 FINDINGS: Bones: No fractures or dislocations. No suspicious bony lesions. There is an accessory ossicle see n, an os tibiale externum. Soft tissues: No tibiotalar joint effusion. Achilles tendon appears normal. IMPRESSION: No definite, displaced fractures are seen on these plain films. If there is focal tenderness (or other strong clinical concern for a fracture that is not seen on thi s plain film study) then please consider a dedicated CT for further evaluation. Reviewed by: Johnnie Medrano MD on 08/19/2020 1:54 PM [facility] Approved by: Johnnie Medrano MD on 08/19/2020 1:54 PM SHAV[facility] Station ID: [id number]
--- NOTE | 2020-08-19 14:57 | XRAY Report ---
PROCEDURE: Ankle 3 View LT INDICATIONS: fall, L foot/ankle pain TECHNIQUE: 3 views of the ankle were acquired. COMPARISON: Correlation is made with the accompanying foot plain films, 08/19/2020 FINDINGS: Bones: No fractures or dislocations. Ankle mortise is normally aligned. No suspicious bony lesions . The talar dome demonstrates an unremarkable appearance. Soft tissues: No tibiotalar joint effusion. Achilles tendon appears normal. IMPRESSION: No acute plain film abnormality is seen. Reviewed by: Johnnie Medrano MD on 08/19/2020 1:55 PM AKDT Approved by: Johnnie Medrano MD on 08/19/2020 1:55 PM AKDT Station ID: [id number]
[2020-08-19] MEDS ORDERED: cephALEXin 250 MG CAPSULE PO STA (15:21)
[2020-08-19] MEDS ORDERED: BACITRACIN ZINC OINT 1 PACKET TOP STA (15:37)
[2020-08-19] MEDS ORDERED: ACETAMINOPHEN 325 MG TABLET PO STA (15:37)
[2020-08-19 15:52] VITALS: BP 158/80
== END 2020-08-19 15:55 | disposition home or self-care (01) ==
LOC: EDUNIT# → ED 12:12
DX: S93.401A Sprain of unspecified ligament of right ankle, initial encounter (principal); S70.311A Abrasion, right thigh, initial encounter; V48.1XXA Car passenger injured in noncollision transport accident in nontraffic accident, initial encounter; Y92.410 Unspecified street and highway as the place of occurrence of the external cause; L03.032 Cellulitis of left toe; I10 Essential (primary) hypertension; F03.90 Unspecified dementia, unspecified severity, without behavioral disturbance, psychotic disturbance, mood disturbance, and anxiety
CPT/HCPCS: 73610; 73630; 99283; 99284; A9270

== ENCOUNTER 2020-08-19 19:06 | Outpatient (CLI) | payer MEDICAID | END 2020-08-19 19:07 | disposition critical access hospital (66) | LOC: EMS 19:06 | PROVIDERS: ATTEND Surgery | DX: R41.82 Altered mental status, unspecified (principal); R11.0 Nausea | CPT/HCPCS: A0425; A0429 ==

== ENCOUNTER 2020-08-19 19:30 | Emergency (ER) | payer MEDICAID ==
[2020-08-19 20:37] LABS: BASOPHILS # (AUTO) 0.1 10^3/uL (0.0-0.1); BASOPHILS % (AUTO) 0.4 %; EOSINOPHILS % (AUTO) 0.1 %; HGB - HEMOGLOBIN 15.1 g/dL (12.0-16.0); LYMPHOCYTES # (AUTO) 2.6 10^3/uL (1.5-3.5); LYMPHOCYTES % (AUTO) 16.5 %; MEAN CORPUSCULAR HEMOGLOBIN 30.8 pg (27.0-31.0); MEAN CORPUSCULAR VOLUME 85.5 fL (81.0-99.0); MEAN PLATELET VOLUME 9.1 fL (7.9-10.8); MONOCYTES # (AUTO) 1.9 10^3/uL (0.0-1.0); MONOCYTES % (AUTO) 12.2 %; NEUTROPHILS # (AUTO) 10.9 10^3/uL (1.5-6.6); NEUTROPHILS % (AUTO) 70.4 %; PLT - PLATELET COUNT 416 10^3/uL (130-450); RED BLOOD COUNT 4.91 10^6/uL (4.20-5.40); RED CELL DISTRIBUTION WIDTH 13.7 % (12.0-15.0); WHITE BLOOD COUNT 15.5 x10^3/uL (4.8-10.8)
[2020-08-19 20:51] LABS: ACETAMINOPHEN < 10 ug/mL (10-30); ALBUMIN 4.4 g/dL (3.2-5.5); ALBUMIN/GLOBULIN RATIO 1.7 (1.0-2.2); ALKALINE PHOSPHATASE 79 IU/L (42-121); ALT ALANINE AMINOTRANSFERASE 12 IU/L (10-60); AST ASPARTATE AMINOTRANSFERASE 22 IU/L (10-42); BUN - BLOOD UREA NITROGEN 16 mg/dL (6-20); CALCIUM 9.8 mg/dL (8.5-10.3); CARBON DIOXIDE - CO2 27 mmol/L (21-32); CHLORIDE 105 mmol/L (101-111); CREATININE 1.1 mg/dL (0.4-1.0); GLUCOSE 136 mg/dL (70-100); LIPASE 20 U/L (22-51); SALICYLATE < 6.0 mg/dL; SODIUM 143 mmol/L (135-145)
[2020-08-19 21:24] LABS: MUDS CUTOFF CONCENTRATIONS CUTOFF CONC BELOW:
[2020-08-19 21:25] LABS: DIFFERENTIAL COMMENT MANUAL=AUTO DIFF; PLATELET ESTIMATE, MANUAL NORMAL (130-450,000) (NORMAL); PLATELET MORPHOLOGY NORMAL APPEARANCE (NORMAL); RBC MORPHOLOGY (MULTIPLE) NORMAL APPEARANCE (NORMAL)
[2020-08-19 21:29] LABS: GLUCOSE, URINE (UA) NEGATIVE (NEGATIVE); KETONES,URINE (UA) TRACE mg/dL (NEGATIVE); LEUKOCYTE ESTERASE, URINE NEGATIVE (NEGATIVE); NITRITE,URINE NEGATIVE (NEGATIVE); OCCULT BLOOD,URINE NEGATIVE (NEGATIVE); PROTEIN,URINE TRACE mg/dL (NEGATIVE); UROBILINOGEN,URINE 2 E.U./dL (NORMAL)
[2020-08-19 21:32] LABS: BILIRUBIN,URINE NEGATIVE (NEGATIVE); CLARITY,URINE CLEAR (CLEAR); ICTOTEST,URINE NEGATIVE
[2020-08-19 21:41] LABS: AMPHETAMINE SCREEN,URINE NEGATIVE (NEGATIVE); BENZODIAZEPINES SCREEN, URINE NEGATIVE (NEGATIVE); COCAINE SCREEN URINE NEGATIVE (NEGATIVE); METHADONE SCREEN, URINE NEGATIVE (NEGATIVE); METHAMPHETAMINES SCREEN, URINE NEGATIVE (NEGATIVE); OPIATE SCREEN, URINE NEGATIVE (NEGATIVE); OXYCODONE SCREEN, URINE NEGATIVE (NEGATIVE); PROPOXYPHENE SCREEN, URINE NEGATIVE (NEGATIVE); TRICYCLIC ANTIDEPRESSANT,URINE NEGATIVE (NEGATIVE)
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
[2020-08-20] MEDS ORDERED: OLANZapine ODT 5 MG TABLET TL ONE (11:23)
--- NOTE | 2020-08-20 14:00 | ED Physician Documentation ---
ED Addendum - Addendum Addendum: 08/20/20 13:55 Today Cecille appears disheveled and appears to be responding to internal stimuli has disorganized thought process and a difficult time even may go shaking her surroundings. The patient has been given a diagnosis of dementia on her chart and we were uncertain where this diagnosis was made or where it came from. I was able to contact the on-call for her primary care doctor Dr. Dorman and Dr. Dorman was able to tell me that looking through this patient's chart she has been treated for depression hypertension and hypothyroid and the majority of visits are related to her depression and this had a worsening in April of this year with mostly disorganization and difficulty completing tasks. She has had psychotic depression previously. The primary indicates there is no previous diagnosis of dementia made. She has notes dating to April of this year. Her primary and supporting staff will be in the office tomorrow [phone] and her primary is Dorothy Scales MD. I believe that Ms. Avina's presentation is related to severe major depression with psychotic feature and not dementia with behavioral disturbance.The suspicion for the worsening depression is a of the patient's mother in September of last year. 08/20/20 15:54 The telepsych has recommended restarting the effexor at 75mg daily and PRN seroquel at 25mg and these orders are placed. The patient did become agitated today and she was given TL zyprexa with improvement. Inpatient psychiatric care is recommended and the social media content manager re-dispatches the DCR and we will have to wait another day for the COVID test.
[2020-08-20] MEDS ORDERED: VENLAFAXINE 37.5 MG TABLET PO STA (15:53)
[2020-08-20] MEDS ORDERED: QUEtiapine 25 MG TABLET PO PRN (15:53)
--- NOTE | 2020-08-21 10:33 | ED Physician Documentation ---
PD HPI MHE - Stated complaint Stated Complaint: ALOC/ NAUSEA - Chief complaint Chief Complaint: Abd Pain PD PAST MEDICAL HISTORY - Past Medical History Past Medical History: Yes Cardiovascular: Hypertension Respiratory: COPD Neuro: None Endocrine/Autoimmune: HyPOthyroidism GI: None CERTIFIED MEDICAL ASSISTANT: None : None HEENT: None Psych: Depression Musculoskeletal: None Derm: None Other Past Medical History: pt is poor historian, reluctant to answer - Past Surgical History Past Surgical History: Yes /CERTIFIED MEDICAL ASSISTANT: Hysterectomy - Present Medications Home Medications: Ambulatory Orders Medication Instructions Recorded Confirmed Levothyroxine [Synthroid] 03/27/16 Venlafaxine [Effexor] 03/27/16 buPROPion [Wellbutrin Sr] 150 mg PO BID 03/27/16 03/27/16 lisinopriL [Lisinopril] 03/27/16 Phenazopyridine [Pyridium] 200 mg PO TID 5 Days tablet 03/28/16 Sulfamethoxazole/Trimethoprim 1 each PO BID #14 tablet 03/28/16 [Bactrim Ds Tablet] Levothyroxine [Synthroid] 75 mcg PO QDAC #30 tablet 06/15/20 Cephalexin [Keflex] 500 mg PO QID #20 capsule 06/25/20 Venlafaxine [Effexor] 75 mg PO BID #40 tablet 08/01/20 buPROPion [Wellbutrin Sr] 150 mg PO BID #40 tablet 08/01/20 lisinopriL [Lisinopril] 10 mg PO DAILY #20 tablet 08/01/20 Cephalexin [Keflex] 500 mg PO Q6H #28 capsule 08/19/20 - Allergies Allergies/Adverse Reactions: Allergies Allergy/AdvReac Type Severity Reaction Status Date / Time No Known Drug Allergies Allergy Verified 08/19/20 19:43 - Social History Does the pt smoke?: No Smoking Status: Never smoker Does the pt drink ETOH?: No Does the pt have substance abuse?: No - Immunizations Immunizations are current?: Yes - POLST Patient has POLST: No Results - Vitals Vitals: Vital Signs - 24 hr 08/20/20 08/21/20 08/21/20 17:44 03:33 11:00 Temperature 36.9 C 36.7 C 36.5 C Heart Rate 85 81 82 Respiratory 16 14 18 Rate Blood Pressure 128/70 124/69 125/54 L O2 Saturation 100 100 99 08/21/20 15:33 Temperature Heart Rate 85 Respiratory 16 Rate Blood Pressure 122/62 O2 Saturation 99 Oxygen O2 Source Room air - EKG (time done) 1023 Rate: Rate (enter#) (74) QRS: Poor R wave progression Ischemia: Q waves Compare to prior EKG: Unchanged from prior EKG (SPT 08-02-2020 no changes) Computer interpretation: Agree with computer - Labs Labs: Laboratory Tests 08/19/20 08/19/20 08/19/20 20:30 20:30 20:30 WBC 15.5 H RBC 4.91 Hgb 15.1 Hct 42.0 MCV 85.5 MCH 30.8 MCHC 36.0 RDW 13.7 Plt Count 416 MPV 9.1 Neut # (Auto) 10.9 H Lymph # (Auto) 2.6 Ector # (Auto) 1.9 H Eos # (Auto) 0.0 Baso # (Auto) 0.1 Absolute Nucleated RBC 0.00 Band Neuts % (Manual) Not Reportable Abnorm Lymph % (Manual) Not Reportable Nucleated RBC % 0.0 Neutrophils # (Manual) Not Reportable Lymphocytes # (Manual) Not Reportable Monocytes # (Manual) Not Reportable Eosinophils # (Manual) Not Reportable Basophils # (Manual) Not Reportable Differential Comment MANUAL=AUTO DIFF Manual Slide Review Indicated Platelet Estimate NORMAL (130-450,000) Platelet Morphology NORMAL APPEARANCE RBC Morph Micro Appear NORMAL APPEARANCE Sodium 143 Potassium 3.4 L Chloride 105 Carbon Dioxide 27 Anion Gap 11.0 BUN 16 Creatinine 1.1 H Estimated GFR (MDRD) 50 L Glucose 136 H Calcium 9.8 Magnesium Total Bilirubin 1.0 AST 22 ALT 12 Alkaline Phosphatase 79 Total Protein 7.0 Albumin 4.4 Globulin 2.6 Albumin/Globulin Ratio 1.7 Lipase 20 L TSH 0.22 L Free T4 Urine Color Urine Clarity Urine pH Ur Specific [place] Urine Protein Urine Glucose (UA) Urine Ketones Urine Occult Blood Urine Nitrite Urine Bilirubin Urine Urobilinogen Ur Leukocyte Esterase Ur Microscopic Review Urine Culture Comments Salicylates < 6.0 Urine Opiates Screen Ur Oxycodone Screen Urine Methadone Screen Ur Propoxyphene Screen Acetaminophen < 10 L Ur Barbiturates Screen Ur Tricyclics Screen Ur Phencyclidine Scrn Ur Amphetamine Screen U Methamphetamines Scrn U Benzodiazepines Scrn Urine Cocaine Screen U Cannabinoids Screen Ethyl Alcohol < 5.0 Coronavirus (PCR) 08/19/20 08/19/20 08/19/20 20:30 21:20 22:43 WBC RBC Hgb Hct MCV MCH MCHC RDW Plt Count MPV Neut # (Auto) Lymph # (Auto) E[place] # (Auto) Eos # (Auto) Baso # (Auto) Absolute Nucleated RBC Band Neuts % (Manual) Abnorm Lymph % (Manual) Nucleated RBC % Neutrophils # (Manual) Lymphocytes # (Manual) Monocytes # (Manual) Eosinophils # (Manual) Basophils # (Manual) Differential Comment Manual Slide Review Platelet Estimate Platelet Morphology RBC Morph Micro Appear Sodium Potassium Chloride Carbon Dioxide Anion Gap BUN Creatinine Estimated GFR (MDRD) Glucose Calcium Magnesium Total Bilirubin AST ALT Alkaline Phosphatase Total Protein Albumin Globulin Albumin/Globulin Ratio Lipase TSH Free T4 1.06 Urine Color YELLOW Urine Clarity CLEAR Urine pH 6.0 Ur Specific [place] 1.020 Urine Protein TRACE Urine Glucose (UA) NEGATIVE Urine Ketones TRACE Urine Occult Blood NEGATIVE Urine Nitrite NEGATIVE Urine Bilirubin NEGATIVE Urine Urobilinogen 2 H Ur Leukocyte Esterase NEGATIVE Ur Microscopic Review NOT INDICATED Urine Culture Comments NOT INDICATED Salicylates Urine Opiates Screen NEGATIVE Ur Oxycodone Screen NEGATIVE Urine Methadone Screen NEGATIVE Ur Propoxyphene Screen NEGATIVE Acetaminophen Ur Barbiturates Screen NEGATIVE Ur Tricyclics Screen NEGATIVE Ur Phencyclidine Scrn NEGATIVE Ur Amphetamine Screen NEGATIVE U Methamphetamines Scrn NEGATIVE U Benzodiazepines Scrn NEGATIVE Urine Cocaine Screen NEGATIVE U Cannabinoids Screen NEGATIVE Ethyl Alcohol Coronavirus (PCR) NEGATIVE 08/20/20 02:50 WBC RBC Hgb Hct MCV MCH MCHC RDW Plt Count MPV Neut # (Auto) Lymph # (Auto) [place] # (Auto) Eos # (Auto) Baso # (Auto) Absolute Nucleated RBC Band Neuts % (Manual) Abnorm Lymph % (Manual) Nucleated RBC % Neutrophils # (Manual) Lymphocytes # (Manual) Monocytes # (Manual) Eosinophils # (Manual) Basophils # (Manual) Differential Comment Manual Slide Review Platelet Estimate Platelet Morphology RBC Morph Micro Appear Sodium Potassium Chloride Carbon Dioxide Anion Gap BUN Creatinine Estimated GFR (MDRD) Glucose Calcium Magnesium 1.9 Total Bilirubin AST ALT Alkaline Phosphatase Total Protein Albumin Globulin Albumin/Globulin Ratio Lipase TSH Free T4 Urine Color Urine Clarity Urine pH Ur Specific [place] Urine Protein Urine Glucose (UA) Urine Ketones Urine Occult Blood Urine Nitrite Urine Bilirubin Urine Urobilinogen Ur Leukocyte Esterase Ur Microscopic Review Urine Culture Comments Salicylates Urine Opiates Screen Ur Oxycodone Screen Urine Methadone Screen Ur Propoxyphene Screen Acetaminophen Ur Barbiturates Screen Ur Tricyclics Screen Ur Phencyclidine Scrn Ur Amphetamine Screen U Methamphetamines Scrn U Benzodiazepines Scrn Urine Cocaine Screen U Cannabinoids Screen Ethyl Alcohol Coronavirus (PCR) PD MEDICAL DECISION MAKING - ED course ED course: 65 y/o female with a history of depression has become severely depressed and has acute psychosis. She is treated in the ED with zyprexa and then effexor and seroquel. She makes some improvement while here. She is detained as gravely disabled and transferred to [facility]. Departure - Departure Disposition: [facility] Hosp/Unit DC/Xfer Clinical Impression: Hypothyroid Qualifiers: Hypothyroidism type: unspecified Qualified Code(s): E03.9 - Hypothyroidism, unspecified Altered mental state Qualifiers: Altered mental status type: unspecified Qualified Code(s): R41.82 - Altered mental status, unspecified Condition: Stable Discharge Date/Time: 08/21/20 15:34
--- NOTE | 2020-08-21 12:36 | ED Physician Documentation ---
ED Addendum - Addendum Addendum: 08/21/20 12:35 Patient seen by the DCR, detained to [facility] under the care of Dr. Gigi Bell. [place]ras were completed and she is stable for transport for psychiatric care. She is involuntary. Diagnosis depression with psychosis. Disposition transfer to psychiatric facility, condition stable.
[2020-08-21 15:34] VITALS: BP 122/62
== END 2020-08-21 15:34 ==
LOC: EDUNIT# → ED 19:30
DX: F32.3 Major depressive disorder, single episode, severe with psychotic features (principal); Z20.828 Contact with and (suspected) exposure to other viral communicable diseases; R41.0 Disorientation, unspecified; R94.31 Abnormal electrocardiogram [ECG] [EKG]; E03.9 Hypothyroidism, unspecified; I10 Essential (primary) hypertension; F03.90 Unspecified dementia, unspecified severity, without behavioral disturbance, psychotic disturbance, mood disturbance, and anxiety
CPT/HCPCS: 36415; 51701; 80053; 80306; 80307; 80320; 80329; 81003; 83690; 83735; 84439; 84443; 85025; 87635; 93005; 99283; 99284; 99285; A9270; G0426; 81001; 87086